=== PATIENT | female | born 1990 | race Caucasian/White ===

== ENCOUNTER → 2017-08-11 | Emergency (ER) | payer OTHER ==
[~2017-08-11] VITALS: Ht 172.7 cm; Wt 83.0 kg
[~2017-08-11] MED LIST: FLUCONAZOLE150 MG PO; MONISTAT 315 GM VAG
== END | disposition home or self-care (01) ==
LOC: ER 21:07
DX: B37.3 Candidiasis of vulva and vagina (principal)